=== PATIENT | female | born 1955 | race Caucasian/White ===

== ENCOUNTER 2024-09-21 11:08 | Emergency (ER) | payer MEDICARE, MEDICAID ==
[~2024-09-21] VITALS: Ht 160 cm; Wt 68.2 kg
[2024-09-21] MEDS: ibuprofen 200mg tablet PO ONE (13:33)
[2024-09-21] MEDS ORDERED: TAM75C PO (13:36)
[2024-09-21 13:44] VITALS: BP 135/81; PULSE 91; RESP 16; TEMP 98.1; O2SAT 99
== END 2024-09-21 13:45 | disposition home or self-care (01) ==
LOC: ER 11:09
DX: J11.1 Influenza due to unidentified influenza virus with other respiratory manifestations (principal); Z20.822 Contact with and (suspected) exposure to COVID-19; Z88.0 Allergy status to penicillin
CPT/HCPCS: 36415; 87502; 87503; 87811; 99283